=== PATIENT | male | born 1945 | race American Indian/Alaskan Native ===

== ENCOUNTER 2017-03-30 22:23 | Observation (INO) | payer MEDICARE, OTHER ==
[2017-03-30] MEDS ORDERED: Sodium Chloride 0.9% 1,000 ML IV STA (22:36)
--- NOTE | 2017-03-30 22:41 | ED PDOC ---
Arrival/HPI - General Chief Complaint: Flu-like Symptoms Time Seen by Provider: 03/30/17 22:30 Historian: Patient - History of Present Illness Narrative History of Present Illness (Text): 03/30/17 22:39 71 y/o male, pmh including htn/hyperlipidemia/dm, nkda, c/o coughing/runny nose/ fever/upper lip swelling x 2 days. Pt. stated that he has been sick for the past 2 days with fatigue and unable to get out of the bed, woke up each morning with runny nose, coughing, fever, no headache or night sweat, no neck stiffness , no recent traveling for the past 4 weeks. Pt. has no abdominal or pelvic pain , no dizziness, no palpitation, no other medical or psychological complaints. Past Medical History - Provider Review Nursing Documentation Reviewed: Yes - Infectious Disease Hx of Infectious Diseases: None - Tetanus Immunization Tetanus Immunization: Up to Date - Cardiac Hx Cardiac Disorders: Yes Hx Hypertension: Yes Other/Comment: Coronary Stent - Pulmonary Hx Respiratory Disorders: No - Neurological Hx Neurological Disorder: No - HEENT Hx HEENT Disorder: No - Endocrine/Metabolic Hx Endocrine Disorders: Yes Hx Diabetes Mellitus Type 2: Yes - Hematological/Oncological Hx Blood Disorders: No - Musculoskeletal/Rheumatological Hx Musculoskeletal Disorders: Yes Hx Arthritis: Yes - Gastrointestinal Hx Gastrointestinal Disorders: No - Genitourinary/Gynecological Hx Genitourinary Disorders: No - Psychiatric Hx Psychophysiologic Disorder: No Hx Substance Use: No - Surgical History Hx Coronary Stent: Yes (2003) - Anesthesia Hx Anesthesia: Yes Hx Anesthesia Reactions: No - Suicidal Assessment Feels Threatened In Home Enviroment: No Family/Social History - Physician Review Nursing Documentation Reviewed: Yes Family/Social History: Unknown Family HX Smoking Status: Never Smoked Hx Alcohol Use: Yes (SOCIALLY) Frequency of alcohol use: Socially Hx Substance Use: No Allergies/Home Meds Allergies/Adverse Reactions: Allergies No Known Allergies Allergy (Verified 10/07/13 13:10) Home Medications: Home Meds Medication Instructions Recorded Confirmed Aspirin [Ecotrin] 81 mg PO DAILY 03/30/17 03/30/17 Atenolol [Tenormin] 25 mg PO DAILY 03/30/17 03/30/17 Gabapentin [Neurontin] 100 mg PO BID 03/30/17 03/30/17 Lovastatin [Altoprev] 40 mg PO DAILY 03/30/17 03/30/17 MetFORMIN [glucOPHAGE] 1,000 mg PO BID 03/30/17 03/30/17 Review of Systems - Review of Systems Constitutional: Fevers. absent: Fatigue Eyes: absent: Vision Changes ENT: Rhinorrhea. absent: Hearing Changes Respiratory: Cough, Sputum. absent: SOB, Wheezing Cardiovascular: absent: Chest Pain Gastrointestinal: absent: Abdominal Pain, Nausea, Vomiting Musculoskeletal: absent: Arthralgias, Back Pain, Neck Pain, Joint Swelling, Myalgias Skin: absent: Rash, Pruritis Neurological: absent: Headache, Dizziness, Focal Weakness, Gait Changes Physical Exam Vital Signs Reviewed: Yes Vital Signs Temp Pulse Resp BP Pulse Ox 03/31/17 01:07 98.9 F 74 110/68 99 03/30/17 23:08 101.0 F H 03/30/17 22:28 100.1 F H 83 16 156/77 H 98 Temperature: Afebrile Blood Pressure: Hypertensive Pulse: Regular Respiratory Rate: Normal Appearance: Positive for: Well-Appearing, Non-Toxic, Comfortable, Uncomfortable Pain Distress: None Mental Status: Positive for: Alert and Oriented X 3 - Systems Exam Head: Present: Atraumatic, Normocephalic Pupils: Present: PERRL Extroacular Muscles: Present: EOMI Conjunctiva: Present: Normal Ears: Present: NORMAL TM, Normal Canal. No: Erythema Mouth: Present: Moist Mucous Membranes, Other (visible upper gumline region with visible approx. [id number] fluctuant gingival abscess. ). No: Normal Lips (+ swelling upper lip) Pharnyx: No: ERYTHEMA, EXUDATE, Uvular Deviation, Soft Palate/Uvular Edema Nose (External): Present: Atraumatic. No: Abrasion, Contusion Nose (Internal): Present: Normal Inspection, No Active Bleeding, Rhinorrhea. No : Septal Hematoma, Epistaxis Neck: Present: Normal Range of Motion, Trachea Midline. No: MIDLINE TENDERNESS , Lymphadenopathy Respiratory/Chest: Present: Clear to Auscultation, Good Air Exchange. No: Respiratory Distress, Accessory Muscle Use, Wheezes, Decreased Breath Sounds, Rales, Retracting, Rhonchi, Tachypneic, Tender to Palpation, Other Cardiovascular: Present: Regular Rate and Rhythm, Normal S1, S2, Other (no pedal edema). No: Murmurs Abdomen: Present: Normal Bowel Sounds. No: Tenderness, Distention, Peritoneal Signs, Rebound, Guarding Back: Present: Normal Inspection Upper Extremity: Present: Normal Inspection. No: Cyanosis, Edema Lower Extremity: Present: Normal Inspection. No: Edema Neurological: Present: GCS=15, Speech Normal, Motor Func Grossly Intact, Gait Normal, Memory Normal Skin: Present: Warm, Dry, Normal Color. No: Rashes Lymphatic: No: Cervical Adenopathy Psychiatric: Present: Alert, Oriented x 3, Normal Insight, Normal Concentration Medical Decision Making ED Course and Treatment: 03/30/17 22:42 -labs/ua -chest x-ray -IVF/tylenol -observe and reassess 03/31/17 01:32 -I used 18 gauge needle to aspirate the gingival abscess after clean with saline and betadine, approx. 3cc of purulant discharge released. -Pt. is sick looking, chills which I don't think the gingival abscess will cause to this current condition. -Labs show no acute findings except wbc 11.8 with febrile in the ER, lactic acid within normal limit -Chest xray show no acute findings -UA show no acute findings -Blood culture added -I discussed with Dr. Santana and she agreed on the observation plan for the patient over night. She will put in the observation order. -I spoke to Dr. Bernal which he is covering for Dr. Garcia, discussed about the labs/radiology result and patient's condition, request Dr. Andres for routine consult with bridge order and observation plan. - Lab Interpretations Lab Results: 03/30/17 23:00 03/30/17 23:00 Lab Results 03/31/17 00:36: pO2 127 H, VBG pH 7.38, VBG pCO2 40.0, VBG HCO3 23.7, VBG Total CO2 24.9, VBG O2 Sat (Calc) 99.6 H, VBG Base Excess -1.3 L, VBG Potassium 3.9, Glucose 108, Lactate 1.1, FiO2 21.0, Sodium 136.0, Chloride 108.0 H, Venous Blood Potassium 3.9 03/30/17 23:00: Influenza Typ A,B (EIA) Negative for flu a/b 03/30/17 23:00: Sodium 135, Potassium 4.4, Chloride 101, Carbon Dioxide 25, Anion Gap 13, BUN 13, Creatinine 1.2, Est GFR ( Amer) > 60, Est GFR (Non- Af Amer) 60, Random Glucose 131 H, Calcium 9.5, Total Bilirubin 0.6, AST 27, ALT 27, Alkaline Phosphatase 64, Total Protein 8.2, Albumin 4.4, Globulin 3.8, Albumin/Globulin Ratio 1.2 03/30/17 23:00: Urine Color Yellow, Urine Appearance Clear, Urine pH 6.0, Ur Specific [place] 1.025, Urine Protein Negative, Urine Glucose (UA) Negative, Urine Ketones Negative, Urine Blood Negative, Urine Nitrate Negative, Urine Bilirubin Negative, Urine Urobilinogen 0.2, Ur Leukocyte Esterase Negative 03/30/17 23:00: WBC 11.8 H D, RBC 4.41, Hgb 13.1 L, Hct 36.2 L, MCV 82.1, MCH 29.7, MCHC 36.2, RDW 13.6, Plt Count 200, MPV 10.0, Gran % 65.4, Lymph % (Auto) 24.4, Mckean % (Auto) 9.9 H, Eos % (Auto) 0.1 L, Baso % (Auto) 0.2, Gran # 7.74 H , Lymph # 2.9, Mckean # 1.2 H, Eos # 0.0, Baso # 0.02 I have reviewed the lab results: Yes Interpretation: Abnormal lab values (Wbc 11.8) - RAD Interpretation Radiology Orders: 03/30/17 22:35 CHEST PORTABLE [RAD] Stat no active disease Practice Coordinator: Radiologist - Medication Orders Current Medication Orders: Piperacillin Sod/Tazobactam Sod (Zosyn 3.375 In Ns 100ml) 100 mls @ 200 mls/hr IVPB STAT STA PRN Reason: Protocol Stop: 03/31/17 01:43 Discontinued Medications Acetaminophen (Tylenol 325mg Tab) 650 mg PO STAT STA Stop: 03/30/17 22:37 Last Admin: 03/30/17 23:08 Dose: 650 mg Sodium Chloride (Sodium Chloride 0.9%) 1,000 mls @ 500 mls/hr IV .Q2H STA Stop: 03/31/17 00:35 Last Admin: 03/30/17 23:20 Dose: 500 mls/hr - PA / LABORER RAGS / Resident Statement MD/DO has reviewed & agrees with the documentation as recorded. Disposition/Present on Arrival - Present on Arrival Any Indicators Present on Arrival: No History of DVT/PE: No History of Uncontrolled Diabetes: No Urinary Catheter: No History of Decub. Ulcer: No History Surgical Site Infection Following: None - Disposition Have Diagnosis and Disposition been Completed?: Yes Diagnosis: Gingival abscess, Chills, Leukocytosis, Malaise and fatigue Disposition: HOSPITALIZED Disposition Time: 01:35 Patient Plan: Admission, Observation Patient Problems: Current Active Problems Problem Status Onset Chills Acute Gingival abscess Acute Leukocytosis Acute Malaise and fatigue Acute Condition: STABLE
[2017-03-30 23:10] LABS: ADD MANUAL DIFF? NO
[2017-03-30 23:25] LABS: ALB/GLOB RATIO 1.2 (1.1-1.8); ALKALINE PHOSPHATASE 64 U/L (38-133); ALT/SGPT 27 U/L (7-56); AST/SGOT 27 U/L (15-59); BILIRUBIN,TOTAL 0.6 mg/dL (0.2-1.3); BLOOD UREA NITROGEN 13 mg/dL (7-21); CALCIUM 9.5 mg/dL (8.4-10.5); CARBON DIOXIDE 25 mmol/L (21-33); CHLORIDE 101 mmol/L (98-107); GFR AFRICAN-AMERICAN > 60; GLUCOSE,RANDOM 131 mg/dL (70-110); POTASSIUM 4.4 mmol/L (3.6-5.0); SODIUM 135 mmol/L (132-148); TOTAL PROTEIN 8.2 g/dL (5.8-8.3)
[2017-03-30 23:44] LABS: URINE BILIRUBIN NEGATIVE (NEGATIVE); URINE BLOOD NEGATIVE (NEGATIVE); URINE GLUCOSE (UA) NEGATIVE (NEGATIVE); URINE KETONE NEGATIVE (NEGATIVE); URINE LEUKOCYTE ESTERASE NEGATIVE Leu/uL (NEGATIVE); URINE PROTEIN NEGATIVE mg/dL (<30 mg/dL); URINE UROBILINOGEN 0.2 E.U./dL (<1 E.U./dL)
[2017-03-30 23:53] LABS: BASO # 0.02 K/mm3 (0.0-2.0); BASO % 0.2 % (0.0-3.0); EOS % 0.1 % (1.5-5.0); GRAN # 7.74 (1.4-6.5); GRAN % 65.4 % (50.0-68.0); HEMATOCRIT 36.2 % (42.0-52.0); LYMPH # 2.9 (1.2-3.4); LYMPH % 24.4 % (22.0-35.0); MEAN CELL VOLUME 82.1 fL (80.0-105.0); MEAN CORPUSCULAR HEMOGLOBIN 29.7 pg (25.0-35.0); MEAN CORPUSCULAR HGB CONC 36.2 g/dl (31.0-37.0); MONO # 1.2 (0.1-0.6); MONO % 9.9 % (1.0-6.0); PLATELET COUNT 200 10^3/uL (120.0-450.0); RED CELL DISTRIBUTION WIDTH 13.6 % (11.5-14.5); WHITE BLOOD COUNT 11.8 10^3/ul (4.5-11.0)
[2017-03-30 23:59] LABS: URINE APPEARANCE CLEAR (CLEAR); URINE COLOR YELLOW (YELLOW)
[2017-03-31 00:49] LABS: VENOUS BLOOD GAS BASE EXCESS -1.3 mmol/L (0.0-2.0); VENOUS BLOOD PH 7.38 (7.32-7.43)
[2017-03-31] MEDS ORDERED: Piperacillin/Tazobact 3.375 gm 100 ML IVPB STA (01:14)
[2017-03-31 06:21] VITALS: BMI 24.3
[2017-03-31] MEDS: Ampicillin/Sulbactam 3 GM in Sodium Chloride 0.9% 100 ML IVPB SCH ×3 (06:50→17:10)
--- NOTE | 2017-03-31 08:21 | RAD ---
HISTORY: cough and fever COMPARISON: No prior. FINDINGS: LUNGS: The lungs are well inflated and clear. PLEURA: No significant pleural effusion identified, no pneumothorax apparent. CARDIOVASCULAR: Normal. OSSEOUS STRUCTURES: No significant abnormalities. VISUALIZED UPPER ABDOMEN: Normal. OTHER FINDINGS: None. IMPRESSION: No active pulmonary disease.
--- NOTE | 2017-03-31 08:30 | HP ---
The patient came into the Emergency Room last night with 2-day history of fatigue, unable to get out of bed, swollen lips, runny nose, coughing, fever, not feeling well at all. He comes to the Emergenc y Room. PAST MEDICAL HISTORY: Cardiac disease, hypertension, coronary stents, type 2 diabetes, arthritis. There is hypertension in the family. He never smoked. He drinks socially. No substance abuse. ALLERGIES: No known drug allergies. He takes Ecotrin, Tenormin, Neurontin, Altoprev and Glucophage. He had fevers at home. No vision changes or hearing changes. He has a cough and sputum. No chest p ain, no abdominal pain. No nausea, vomiting. No back pain. No skin issues. No headache, no dizzin ess, but the face is swollen, the lip is swollen. PHYSICAL EXAMINATION: VITAL SIGNS: He has 101 temp, 83 pulse, 16 respiratory rate, 156/77 blood pressure, 98% O2 sat. GENERAL: He is fairly well appearing. HEENT: He has got upper lip swelling and swelling in the gums. His head is atraumatic, normocephali c. Extraocular muscles intact. Pupils equal, reactive to light. Visible upper gumline swelling, lo oks like a gingival abscess, very painful. Nose is atraumatic. No bloody nose. NECK: Supple. HEART: Regular rate. Normal S1, S2. LUNGS: Decreased breath sounds, but clear to auscultation. ABDOMEN: Soft, nontender, positive bowel sounds. EXTREMITIES: Have no edema. NEUROLOGIC: GCS is 15. Cranial nerves II-XII grossly intact. Alert and oriented x 3. SKIN: Warm and dry. No cervical lymphadenopathy. LYMPHATIC: Thyroid midline. No palpable appreciable lymphadenopathy. He has a gingival abscess with a fever. He has negative influenza. Urine is clean. Sodium 135, potassium 4.4, BUN 13, creatinine 1.2, GFR i s greater than 60, sugar is 131, calcium is 9.5, total bili is 0.6, AST is 27, ALT is 27, alk phos 64 , total protein is 8.2, albumin is 4.4, globulin 3.8. White count 11.8, 13.1 hemoglobin, 36.2 hemato crit with 200 platelets. Chest x-ray is pending. He is currently on ampicillin, Zosyn, Tylenol. He will be put back on his medications, his lovastati n, his aspirin, his metformin, his gabapentin, and his atenolol. He is here for observation at this time. I will talk to the infectious disease doctor about the plan for him. He is also on observatio n status, got in today, so we will see how he does tonight until tomorrow. We will check his labs to josué and he is here for gingival abscess, lethargy. He is a diabetic. Lance Garcia DO cc: [id number] TT: 03/31/2017 08:29:26 en
--- NOTE | 2017-03-31 11:07 | CP.PCM.CON ---
History of Present Illness - History of Present Illness History of Present Illness: 71 year old male with PMH of HTN, dyslipidemia, DM, arhthritis, CAD S/P PCI came in to [facility] complaining of rhinorrhea and upper lip swelling for the past 2-3 days, associated with subjective fever and chills. The patient also was complaining of dry cough and malaise as well as pain in the right upper teeth on the right side. The patient denies headache or dizziness, no chest pain, no SOB, no sore throat, no joint pains, no abdominal pain, no diarrhea, no dysuria. The patient was noted to have a gingival abscess on the right side of the upper teeth and it was drained in the ED. The patient now is feeling better. Infectious Diseases consult is requested to further evaluate and manage. Review of Systems - Review of Systems All systems: reviewed and no additional remarkable complaints except (as per HPI ) Past Patient History - Infectious Disease Hx of Infectious Diseases: None - Tetanus Immunizations Tetanus Immunization: Up to Date - Past Social History Smoking Status: Former Smoker - CARDIAC Hx Cardiac Disorders: Yes Hx Hypertension: Yes Other/Comment: Coronary Stent - PULMONARY Hx Respiratory Disorders: No - NEUROLOGICAL Hx Neurological Disorder: No - HEENT Hx HEENT Problems: Yes Hx Cataracts: Yes (cataract removal OU) - RENAL Hx Chronic Kidney Disease: No - ENDOCRINE/METABOLIC Hx Endocrine Disorders: Yes Hx Diabetes Mellitus Type 2: Yes - HEMATOLOGICAL/ONCOLOGICAL Hx Blood Disorders: No - INTEGUMENTARY Hx Dermatological Problems: No - MUSCULOSKELETAL/RHEUMATOLOGICAL Hx Musculoskeletal Disorders: Yes Hx Arthritis: Yes Hx Falls: No - GASTROINTESTINAL Hx Gastrointestinal Disorders: No - GENITOURINARY/GYNECOLOGICAL Hx Genitourinary Disorders: Yes Hx Prostate Problems: Yes (elevated PSA) - PSYCHIATRIC Hx Psychophysiologic Disorder: No - SURGICAL HISTORY Hx Surgeries: Yes Hx Coronary Stent: Yes (2003) Other/Comment: cataract repair OU - ANESTHESIA Hx Anesthesia: Yes Hx Anesthesia Reactions: No Meds Allergies/Adverse Reactions: Allergies Allergy/AdvReac Type Severity Reaction Status Date / Time No Known Allergies Allergy Verified 03/31/17 03:14 - Medications Medications: Current Medications Ampicillin Sodium/Sulbactam (Sodium 3 gm/ Sodium Chloride) 100 mls @ 200 mls/ hr IVPB Q6 DINESH PRN Reason: Protocol Physical Exam - Constitutional Appears: Non-toxic, No Acute Distress - Head Exam Head Exam: NORMAL INSPECTION - ENT Exam ENT Exam: Mucous Membranes Moist - Neck Exam Neck exam: Negative for: Lymphadenopathy, Meningismus - Respiratory Exam Respiratory Exam: Decreased Breath Sounds - Cardiovascular Exam Cardiovascular Exam: +S1, +S2 - GI/Abdominal Exam GI & Abdominal Exam: Soft. absent: Tenderness Results - Vital Signs Recent Vital Signs: Last Vital Signs Temp 98.3 F 03/31/17 03:12 Pulse 70 03/31/17 03:12 Resp 20 03/31/17 03:12 BP 131/74 03/31/17 03:12 Pulse Ox 99 03/31/17 01:07 - Labs Result Diagrams: 03/30/17 23:00 03/30/17 23:00 Assessment & Plan - Assessment and Plan (Free Text) Plan: Assessment Consider sepsis due to right sided periodontal / gingival abscess S/P I and D POD #1, with associated upper respiratory infection HTN dyslipidemia DM arhthritis CAD S/P PCI Plan started patient on Unasyn pending blood cx and abscess cultures will follow clinically
--- NOTE | 2017-03-31 19:04 | CARD ---
APPROVED REPORT EKG Measurement Heart [id number] IN [id number] <Conclusion> Normal sinus rhythm Normal ECG
[2017-04-01] MEDS: Ampicillin/Sulbactam 3 GM in Sodium Chloride 0.9% 100 ML IVPB SCH ×3 (00:27→13:00)
[2017-04-01 07:11] LABS: HEMATOCRIT 34.3 % (42.0-52.0); MEAN CELL VOLUME 81.3 fL (80.0-105.0); MEAN CORPUSCULAR HEMOGLOBIN 28.9 pg (25.0-35.0); MEAN CORPUSCULAR HGB CONC 35.6 g/dl (31.0-37.0); MEAN PLATELET VOLUME 9.7 fl (7.0-11.0); RED CELL DISTRIBUTION WIDTH 13.8 % (11.5-14.5); WHITE BLOOD COUNT 6.4 10^3/ul (4.5-11.0)
[2017-04-01 07:13] LABS: ALB/GLOB RATIO 1.1 (1.1-1.8); ALKALINE PHOSPHATASE 56 U/L (38-133); ALT/SGPT 30 U/L (7-56); AST/SGOT 21 U/L (15-59); BILIRUBIN,TOTAL 0.5 mg/dL (0.2-1.3); BLOOD UREA NITROGEN 11 mg/dL (7-21); CALCIUM 8.8 mg/dL (8.4-10.5); CARBON DIOXIDE 24 mmol/L (21-33); CHLORIDE 109 mmol/L (98-107); GFR AFRICAN-AMERICAN > 60; GLUCOSE,RANDOM 122 mg/dL (70-110); POTASSIUM 4.2 mmol/L (3.6-5.0); SODIUM 140 mmol/L (132-148); TOTAL PROTEIN 7.1 g/dL (5.8-8.3)
[2017-04-01 07:20] VITALS: BP 122/75; PULSE 67; RESP 19; TEMP 97.4; O2SAT 99
--- NOTE | 2017-04-01 11:43 | CP.PCM.PN ---
Subjective - Date & Time of Evaluation Date of Evaluation: 04/01/17 Time of Evaluation: 10:20 - Subjective Subjective: Comfortable, not in distress, no fevers overnight, mouth feels better, no nausea or diarrhea. Objective - Vital Signs/Intake and Output Vital Signs (last 24 hours): Temp Pulse Resp BP Pulse Ox 97.4 F L 67 19 122/75 99 04/01/17 07:20 04/01/17 07:20 04/01/17 07:20 04/01/17 09:54 04/01/17 07:20 Intake and Output: 04/01/17 04/01/17 06:59 18:59 Intake Total 145 Output Total 0 Balance 145 - Medications Medications: Current Medications Aspirin (Ecotrin) 81 mg PO DAILY [facility] Last Admin: 04/01/17 09:54 Dose: 81 mg Atenolol (Tenormin) 25 mg PO DAILY [facility] Last Admin: 04/01/17 09:54 Dose: 25 mg Atorvastatin Calcium (Lipitor) 10 mg PO DIN [facility] Last Admin: 03/31/17 17:09 Dose: 10 mg Gabapentin (Neurontin) 100 mg PO BID [facility] PRN Reason: Protocol Last Admin: 04/01/17 09:54 Dose: 100 mg Ampicillin Sodium/Sulbactam (Sodium 3 gm/ Sodium Chloride) 100 mls @ 200 mls/ hr IVPB Q6 [facility] PRN Reason: Protocol Last Admin: 04/01/17 06:43 Dose: 200 mls/hr Metformin HCl (Glucophage) 1,000 mg PO BID [facility] Last Admin: 04/01/17 09:54 Dose: 1,000 mg - Labs Labs: 04/01/17 06:30 04/01/17 06:30 - Constitutional Appears: Non-toxic, No Acute Distress - Head Exam Head Exam: NORMAL INSPECTION - ENT Exam ENT Exam: Mucous Membranes Moist - Neck Exam Neck Exam: absent: Lymphadenopathy, Meningismus - Respiratory Exam Respiratory Exam: Decreased Breath Sounds - Cardiovascular Exam Cardiovascular Exam: +S1, +S2 - GI/Abdominal Exam GI & Abdominal Exam: Soft. absent: Tenderness Assessment and Plan - Assessment and Plan (Free Text) Plan: Assessment Consider sepsis due to right sided periodontal / gingival abscess S/P I and D POD #2, with associated upper respiratory infection, clinically improving HTN dyslipidemia DM arhthritis CAD S/P PCI Plan on Unasyn day 2; blood cx are negative; when ready for discharge, the patient can be switched to PO augmentin to complete a 7-10 day course
--- NOTE | 2017-04-02 09:07 | DS ---
He was in observation status. He came in with a swelling and infected gingival abscess, status post dental procedure. He wants to go home. He is comfortable. He is feeling better with the IV antibiotics. I have discussed this with infectious disease and we can put him on Augmentin 875 twice a day for 7 days. We will do that. We will discharge him. PHYSICAL EXAMINATION: VITAL SIGNS: He has a 97.4 white count, 67 pulse, 122/75 blood pressure, 19 respiratory rate, 99% O2 sat on room air. HEENT: Head is atraumatic, normocephalic. The gums are less swollen. The mouth looks better actually on a couple of doses of antibiotics IV. HEART: Regular rate. LUNGS: Decreased breath sounds, but clear. ABDOMEN: Soft. EXTREMITIES: No edema. He is currently on ampicillin, Ecotrin, Glucophage, Lipitor, Neurontin, Tenormin. He has got a 6.4 white count, it came down nicely, 12.2 hemoglobin, 34.3 hematocrit with platelets. Sodium 140, potassium 4.2, BUN is 11, creatinine 0.9 , GFR is greater than 60, sugar is 122, calcium is 8.8, total bili is 0.5, AST is 21, ALT is 30, alk phos 56, total protein 7.1. Procalcitonin is less than 0.05. Urine was clean and negative H. influenzae. He will be sent home today. Dr. Cortes said it was okay, the infectious disease doctor. He will be on 875 Augmentin twice a day for a week. I will follow him up in the office next week. He had a gingival abscess and he did fairly well with upper respiratory infection, hypertension, dyslipidemia, diabetes, arthritis and coronary artery disease. Lance Garcia DO cc: [id number] TT: 04/02/2017 09:06:35 en MTDD
== END 2017-04-01 13:10 | disposition home or self-care (01) ==
LOC: ED 22:23 → ERH 03-31 01:21 → 3RNO 03-31 02:54
PROVIDERS: ADMIT Family Medicine; ATTEND Family Medicine
DX: K05.219 Aggressive periodontitis, localized, unspecified severity (principal); E11.9 Type 2 diabetes mellitus without complications; I10 Essential (primary) hypertension
CPT/HCPCS: 36415; 41800; 71010; 80053; 81003; 82803; 82948; 84145; 85025; 85027; 87040; 87804; 93005; 96360; 96365; 99283; G0378; J0295; J2543; J7040

== ENCOUNTER 2018-12-18 11:39 | Outpatient (CLI) | payer MEDICARE | END 2018-12-18 11:40 | disposition home or self-care (01) | LOC: LAB 11:39 ==

== ENCOUNTER 2019-03-18 07:33 | Day surgery (SDC) | payer MEDICARE ==
[2019-03-07 16:39] VITALS: BMI 26.1
[2019-03-18] MEDS ORDERED: Propofol 10 mg/ml Inj (20 ML) ONE (09:10)
[2019-03-18] MEDS ORDERED: Sodium Chloride 0.9% 1,000 ML IV SCH (09:30)
[2019-03-18 11:20] VITALS: BP 127/76; PULSE 60; RESP 16; TEMP 97.7; O2SAT 98
== END 2019-03-18 10:50 | disposition home or self-care (01) ==
LOC: ENDO 07:33
PROVIDERS: ATTEND Internal Medicine Gastroenterology
DX: Z12.11 Encounter for screening for malignant neoplasm of colon (principal); Z86.010 Personal history of colon polyps; K57.30 Diverticulosis of large intestine without perforation or abscess without bleeding; K64.8 Other hemorrhoids; I25.10 Atherosclerotic heart disease of native coronary artery without angina pectoris; E78.00 Pure hypercholesterolemia, unspecified; I10 Essential (primary) hypertension; E11.9 Type 2 diabetes mellitus without complications
CPT/HCPCS: 45378; J2704; J7030